=== PATIENT | female | born 1965 | race Caucasian/White ===

== ENCOUNTER → 2024-01-06 07:30 | Outpatient (REF) | payer OTHER, SELFPAY | LOC: RAD 07:30 | PROVIDERS: ATTENDING PHYSICIAN Nurse Practitioner Family | DX: R91.8 Other nonspecific abnormal finding of lung field (principal); Z87.01 Personal history of pneumonia (recurrent) | CPT/HCPCS: 71250 ==

== ENCOUNTER → 2024-01-21 07:15 | Outpatient (REF) | payer OTHER, SELFPAY | LOC: HWRCS 07:15 | PROVIDERS: ATTENDING PHYSICIAN Internal Medicine; FAMILY PHYSICIAN Nurse Practitioner Family | DX: I48.0 Paroxysmal atrial fibrillation (principal); I34.0 Nonrheumatic mitral (valve) insufficiency | CPT/HCPCS: 93306 ==

== ENCOUNTER → 2024-01-30 08:22 | Outpatient (REF) | payer OTHER, SELFPAY | LOC: DHCBC/DCA 08:22 | PROVIDERS: ATTENDING PHYSICIAN Internal Medicine; FAMILY PHYSICIAN Nurse Practitioner Family | DX: I48.0 Paroxysmal atrial fibrillation (principal); I34.0 Nonrheumatic mitral (valve) insufficiency | CPT/HCPCS: 78452; 93017; A9500 ==

== ENCOUNTER → 2024-02-12 12:53 | Outpatient (REF) | payer OTHER, SELFPAY | LOC: WDC 12:53 | PROVIDERS: ATTENDING PHYSICIAN Nurse Practitioner Family | DX: Z12.31 Encounter for screening mammogram for malignant neoplasm of breast (principal) | CPT/HCPCS: 77063; 77067 ==

== ENCOUNTER → 2024-04-13 10:16 | Outpatient (REF) | payer OTHER, SELFPAY | LOC: HWRAD 10:16 | PROVIDERS: ATTENDING PHYSICIAN Internal Medicine Critical Care Medicine; FAMILY PHYSICIAN Nurse Practitioner Family | DX: R91.8 Other nonspecific abnormal finding of lung field (principal); R59.0 Localized enlarged lymph nodes | CPT/HCPCS: 71260; Q9967 ==

== ENCOUNTER 2024-05-11 19:29 | Emergency (ER) | payer OTHER, SELFPAY ==
[2024-05-11 19:40] VITALS: BP 131/87
--- NOTE | 2024-05-11 20:18 | ED.SKININJ ---
HPI-Injury
General
Chief Complaint: Eye Problems
Source: patient
Exam Limitations: none
Time Seen by Provider: 05/11/24 19:59
Nursing documentation reviewed up to this point in time: agreed with
History of Present Illness-Injury
Is this injury a work related problem?: No
Is pt an associate of [facility]?: No
Initial Injury comments:
Patient to ED with complaint of foreign body sensation to right eye. States she was pruning today. DId not feel anything until she showered tonight. Brought self to ED for eval
Past History
Past History
ED Past Medical History: None
Review of Systems
Review of Systems
Allergies reviewed?: Yes
All Other Systems: ROS reviewed and negative except as documented in HPI and ROS
Constitutional: Reports no symptoms
EENT: Reports other (foreign body sensation right eye)
Musculoskeletal: Reports no symptoms
Skin: Reports no symptoms
Neurological: Reports no symptoms
Psychiatric: Reports no symptoms
Phy Exam
General Physical Exam
General Presentation: well appearing and mild distress
General age: appears stated age
General Skin: warm and dry
General Habitus: normal
General Mental: alert
Eye Exam
Eye Exam: PERRL, EOMI and conjunctiva normal
Conjunctival Changes: right: foreign body (Superficial at 3 oclock)
Type of Exam: slit lamp, simple and fluorescein
Musculoskeletal Exam
Musculoskeletal Exam: full ROM
Skin Exam
Skin Exam: normal color, warm/dry and no rash
Psychiatric Exam
Psychiatric Exam: normal mood/affect
Course
Orders/Labs/Results
Orders:
Orders
05/11/24 20:13
Tobramycin 0.3% [Tobrex 0.3% Eye Drops] See Dose Instructions OPHTH NOW STA
Vital Signs
Initial and Last Documented VS:
Initial Vital Signs
Temp Pulse Resp BP Pulse Ox
98.0 F 63 18 131/87 99
05/11/24 19:40 05/11/24 19:40 05/11/24 19:40 05/11/24 19:40 05/11/24 19:40
Last Documented Vital Signs
Temp Pulse Resp BP Pulse Ox
98.0 F 63 18 131/87 99
05/11/24 19:40 05/11/24 19:40 05/11/24 19:40 05/11/24 19:40 05/11/24 19:40
Procedures
Eye Procedures
Removal of corneal foreign body with: slit lamp and simple removal
Foreign body removal was: complete
After removal was there a corneal abrasion?: corneal abrasion present
*Critical Care Note
Total Time (30-74mins, 75-104mins- exclusive of procedures): Not Applicable
Update Note
Update Note:
Patient to ED for eval of foreign body sensation to right eye. eye examined under slit lamp. Superficial wood chip noted on cornea at 3oclock. Foreign body removed using qtip. SMall abrasion remains. Tobramyicn eye drops intitiated in ED, will
continue Q4WA and will follow up with her opthlmologist in 1-2 days.
ED Attending Note
-
Portions of this chart may have been created with voice recognition software.� Occasional wrong word or��sound alike� substitutions may have occurred due to the inherent limitations of voice recognition software.
Discharge Plan
Departure
Patient Disposition: Home (Routine Discharge)
Date of Disposition: 05/11/24
Time of Disposition: 20:14
Patient with high blood pressure during this ER visit?: No
Condition: Good
Covid-19: Not Applicable
Discharge Problem:
Eye foreign body
Instructions: Corneal Abrasion (DC), How to Use Eye Drops, Foreign Body in Eye (DC)
Activity Restrictions/Additional Instructions:
Tobramycin eye drops. 1 drop to your right eye every 4 hours while awake. Follow up with your eye doctor this week.
Interventions
Interventions:
*Risk Screen - Suicide Last Done: 05/11/24 19:40
*General Assessment Last Done: 05/11/24 19:40
*Neglect/Abuse Screening Last Done: 05/11/24 19:40
*ED COVID-19 Vaccine History Last Done: 05/11/24 19:40
Discharge Date and Time
Print Language: [place]
[2024-05-11] MEDS: TOBREX 0.3% EYE DROPS 1 DROP OPHTH (20:21)
[2024-05-11 20:29] VITALS: BP 114/65
== END 2024-05-11 20:31 | disposition home or self-care (01) ==
LOC: EMR 19:29
PROVIDERS: EMERGENCY PHYSICIAN Emergency Medicine; FAMILY PHYSICIAN Nurse Practitioner Family
DX: T15.81XA Foreign body in other and multiple parts of external eye, right eye, initial encounter (principal); S05.01XA Injury of conjunctiva and corneal abrasion without foreign body, right eye, initial encounter; W44.8XXA Other foreign body entering into or through a natural orifice, initial encounter
CPT/HCPCS: 99283

== ENCOUNTER → 2024-10-23 06:50 | Outpatient (REF) | payer OTHER, SELFPAY | LOC: RAD 06:50 | PROVIDERS: ATTENDING PHYSICIAN Pain Medicine Interventional Pain Medicine; FAMILY PHYSICIAN Nurse Practitioner Family | DX: M54.16 Radiculopathy, lumbar region (principal); M54.50 Low back pain, unspecified | CPT/HCPCS: 72148 ==

== ENCOUNTER → 2025-02-19 07:00 | Outpatient (REF) | payer OTHER, SELFPAY | LOC: WDC 07:00 | PROVIDERS: ATTENDING PHYSICIAN Nurse Practitioner Family | DX: Z12.31 Encounter for screening mammogram for malignant neoplasm of breast (principal) | CPT/HCPCS: 77063; 77067 ==

== ENCOUNTER → 2025-04-14 08:16 | Outpatient (REF) | payer OTHER, SELFPAY | LOC: RAD 08:16 | PROVIDERS: ATTENDING PHYSICIAN Nurse Practitioner Family | DX: Z87.891 Personal history of nicotine dependence (principal); Z12.31 Encounter for screening mammogram for malignant neoplasm of breast | CPT/HCPCS: 77080 ==